=== PATIENT | female | born 1980 | race Caucasian/White ===

== ENCOUNTER 2022-08-01 18:36 | Observation (INO) | payer BC ==
[~2022-08-01] VITALS: Ht 177.8 cm; Wt 122.0 kg
[2022-08-01] MEDS ORDERED: adenosine 3mg/ml 2ml vial IV ONE (18:55)
[2022-08-01 19:01] LABS: BASOPHILS % (AUTO) 0.1 % (0-1); EOSINOPHILS # (AUTO) 0.2 X10'3 (0-0.9); EOSINOPHILS % (AUTO) 2.1 % (0-6); HEMATOCRIT 42.5 % (35.0-45.0); HEMOGLOBIN 14.1 g/dl (12.0-16.0); LYMPHOCYTES # (AUTO) 3.9 X10'3 (1.1-4.8); LYMPHOCYTES % (AUTO) 45.6 % (21-51); MEAN CORPUSCULAR HGB CONC 33.1 g/dL (33.0-36.5); MEAN CORPUSCULAR VOLUME 93.8 FL (78-98); MEAN PLATELET VOLUME 8.1 FL (7.4-10.4); MONOCYTES # (AUTO) 0.9 X10'3 (0-0.9); MONOCYTES % (AUTO) 10.3 % (2-12); NEUTROPHILS # (AUTO) 3.6 X10'3 (1.8-7.7); NEUTROPHILS % (AUTO) 41.9 % (42-75); PLATELET COUNT 312 X10'3 (140-440); RED BLOOD COUNT 4.53 X10'6 (4.20-5.60); RED CELL DISTRIBUTION WIDTH 13.6 % (11.5-14.5); WHITE BLOOD COUNT 8.6 X10'3 (4.5-11.0)
[2022-08-01 19:22] LABS: ALANINE AMINOTRANSFERASE 22 U/L (12-78); ALBUMIN 3.8 G/DL (3.4-5.0); ALBUMIN/GLOBULIN RATIO 0.9 (1.1-1.5); ALKALINE PHOSPHATASE 71 IU/L (46-116); ANION GAP 13 (8-16); ASPARTATE AMINO TRANSFERASE 16 U/L (10-37); BILIRUBIN,TOTAL 0.6 MG/DL (0.1-1.0); BLOOD UREA NITROGEN 14 MG/DL (7-18); BUN/CREATININE RATIO 16.3 (6.6-38.0); CALCIUM 9.1 MG/DL (8.5-10.1); CHLORIDE 102 MMOL/L (99-107); CREATININE 0.86 MG/DL (0.40-0.90); GLUCOSE 115 MG/DL (70-104); MAGNESIUM 2.1 MG/DL (1.5-2.4); POTASSIUM 3.8 MMOL/L (3.5-5.1); SODIUM 134 MMOL/L (135-145); TOTAL CARBON DIOXIDE 18.8 MMOL/L (24-32); eGFR 72 ML/MIN
--- NOTE | 2022-08-01 19:40 | NUR ---
Patient maintained HR in 110s following valsalva maneuver. Patient denies dizziness, states she is feeling much better. Patient maintained on cardiac, spo2, nibp, defib pads for safety.
[2022-08-01 20:45] LABS: URINE HCG NEGATIVE (NEG)
[2022-08-02] MEDS ORDERED: PERFLUTREN PROTEIN-A MICROSPHR (Optison) 0.22 MG/ML 3ML VIAL IV PRN (00:20)
[2022-08-02] MEDS ORDERED: potassium Cl 20 mEq SR tablet PO PRN ×2 (00:20)
[2022-08-02] MEDS ORDERED: magnesium 4gm in 100ml NS 100 ML IV PRN (00:20)
[2022-08-02] MEDS ORDERED: ondansetron/PF 4mg/2ml inj IV PRN (00:20)
[2022-08-02] MEDS ORDERED: mag hydrox/Alum hydrox/simeth 30ml oral suspension PO PRN (00:20)
[2022-08-02] MEDS ORDERED: potassium Cl 40MEQ/1/2NS 520ml 520 ML IV PRN (00:20)
[2022-08-02] MEDS ORDERED: magnesium hydroxide 30ml (MOM) UD suspension PO PRN (00:20)
[2022-08-02] MEDS ORDERED: magnesium Cl slow-release 64mg tablet PO PRN (00:20)
[2022-08-02] MEDS ORDERED: acetaminophen 325mg tablet PO PRN (00:20)
--- NOTE | 2022-08-02 00:23 | NUR ---
Patient resting in stretcher, no distress noted. Attempted to complete med rec, patient has pill minder with her, patient does not have access to known dose strengths, only the physical pills. Pharmacy inquired to see if a pill identifier tool could be used to complete med rec. Pending return call.
[2022-08-02] MEDS ORDERED: metFORMIN 500mg tablet PO ONE (00:25)
[2022-08-02] MEDS ORDERED: metoprolol tartrate 50mg tablet PO ONE (00:25)
[2022-08-02 01:00] LABS: MAGNESIUM 1.9 MG/DL (1.5-2.4); POTASSIUM 3.6 MMOL/L (3.5-5.1)
[2022-08-02] MEDS ORDERED: BETA15CR4 TOP (01:34)
[2022-08-02] MEDS ORDERED: METF-1203 PO (01:34)
[2022-08-02] MEDS ORDERED: AMLO5TAB16 PO (01:34)
[2022-08-02] MEDS ORDERED: [UNRECOGNIZED DRUG - CODE] PO (01:34)
[2022-08-02] MEDS ORDERED: LOSA50TA64 PO (01:34)
[2022-08-02] MEDS ORDERED: CLOB25SO7 TOP (01:34)
[2022-08-02 03:42] LABS: CLARITY,URINE CLEAR (Clear); COLOR,URINE STRAW (Yellow); GLUCOSE, URINE NEGATIVE (Neg); KETONES,URINE NEGATIVE (Neg); LEUKOCYTE ESTERASE ,URINE TRACE (Neg); NITRITES, URINE NEGATIVE (Neg); OCCULT BLOOD,URINE NEGATIVE (Neg); PROTEIN,URINE NEGATIVE (Neg); UROBILINOGEN,URINE 0.2 E.U/dL (0.2-1.0)
[2022-08-02 03:45] LABS: UA COLLECTION TYPE CLN CATCH MIDSTREAM
[2022-08-02 03:47] LABS: URINE AMPHETAMINE SCREEN NEGATIVE (Neg); URINE BARBITUATE SCREEN NEGATIVE (Neg); URINE BENZODIAZEPINES SCREEN NEGATIVE (Neg); URINE CANNABINOID SCREEN NEGATIVE (Neg); URINE COCAINE SCREEN NEGATIVE (Neg); URINE METHADONE SCREEN NEGATIVE (Neg); URINE OPIATE SCREEN NEGATIVE (Neg); URINE PHENCYCLIDINE SCREEN NEGATIVE (Neg)
[2022-08-02 03:49] LABS: SQUAMOUS EPITHELIAL CELL,UR FEW /LPF (FEW)
[2022-08-02 03:50] LABS: BACTERIA,URINE FEW /HPF (Neg); RBC,URINE 0-2 /HPF (0-2); WBC,URINE 0-4 /HPF (0-4)
[2022-08-02] MEDS ORDERED: K and/or MAG REPLACEMENT MC SCH (08:00)
[2022-08-02] MEDS ORDERED: betamet diprop/prop gly 0.05% cream 15gm TP SCH (08:00)
[2022-08-02] MEDS ORDERED: heparin, porcine 5000 units/ml vial SQ SCH (08:00)
[2022-08-02] MEDS ORDERED: docusate sod 100mg capsule PO SCH (08:00)
[2022-08-02] MEDS ORDERED: metFORMIN 500mg tablet PO SCH (08:00)
[2022-08-02] MEDS ORDERED: NORGESTIMATE ETHINYL ESTRADIOL PO SCH (08:00)
[2022-08-02] MEDS ORDERED: losartan 50mg tablet PO SCH (08:00)
--- NOTE | 2022-08-02 09:27 | NUR ---
Bedside Echo in progress
[2022-08-02 10:44] VITALS: BP 147/87
== END 2022-08-02 10:46 | disposition home or self-care (01) ==
LOC: ER 18:38 → ED HOLD 08-02 00:22
PROVIDERS: ADMIT Internal Medicine; ATTEND Family Medicine
DX: I47.1 Supraventricular tachycardia (principal); E28.2 Polycystic ovarian syndrome; I10 Essential (primary) hypertension; K74.60 Unspecified cirrhosis of liver; L40.9 Psoriasis, unspecified; E66.9 Obesity, unspecified; E87.20 Acidosis, unspecified; Z79.84 Long term (current) use of oral hypoglycemic drugs; Z91.010 Allergy to peanuts; Z95.2 Presence of prosthetic heart valve; Z79.899 Other long term (current) drug therapy
CPT/HCPCS: 36415; 71045; 80053; 80305; 81001; 81025; 83605; 83735; 83880; 84132; 84439; 84443; 84484; 85025; 87088; 93005; 93306; 96372; 99285; G0378; J1644

== ENCOUNTER 2023-03-06 20:05 | Emergency (ER) | payer BC ==
[~2023-03-06] VITALS: Ht 177.8 cm; Wt 90.9 kg
[~2023-03-06 20:05] MED LIST: AMLO5TAB16 PO; BETA15CR4 TOP; CLOB25SO7 TOP; LOSA50TA64 PO; METF-1203 PO; [UNRECOGNIZED DRUG - CODE] PO
[2023-03-06 20:57] VITALS: TEMP 98
[2023-03-07 02:09] VITALS: BP 187/111; PULSE 85; RESP 16; O2SAT 95
== END 2023-03-07 03:28 | disposition home or self-care (01) ==
LOC: ER 20:07
DX: T46.1X1A Poisoning by calcium-channel blockers, accidental (unintentional), initial encounter (principal); I10 Essential (primary) hypertension; Z91.010 Allergy to peanuts; Z91.018 Allergy to other foods; Z79.899 Other long term (current) drug therapy; Y92.89 Other specified places as the place of occurrence of the external cause
CPT/HCPCS: 99281